=== PATIENT | male | born 1960 | race Caucasian/White ===

== ENCOUNTER → 2017-01-18 | Outpatient (CLI) | payer BC ==
[~2017-01-18] MED LIST: AMBIEN10 MG; NAPROXEN220 MG; NORCO 325 MG-7.1 TAB PO; PREDNISONE20 MG PO; SKELAXIN800 MG PO; SYNTHROID0.025 MG PO; TYLENOL 325MG325 MG
== END ==
LOC: LAB 07:53
DX: Z00.00 Encounter for general adult medical examination without abnormal findings (principal); Z12.5 Encounter for screening for malignant neoplasm of prostate; Z80.8 Family history of malignant neoplasm of other organs or systems; E04.2 Nontoxic multinodular goiter; R53.81 Other malaise; E55.9 Vitamin D deficiency, unspecified

== ENCOUNTER → 2017-01-25 | Outpatient (CLI) | payer BC ==
[2014-01-18 09:32] VITALS: BP 143/94
== END ==
LOC: RAD 12:56
DX: E04.2 Nontoxic multinodular goiter (principal)

== ENCOUNTER → 2017-02-16 | Outpatient (CLI) | payer BC ==
[2014-01-18 09:32] VITALS: BP 143/94
== END ==
LOC: LAB 10:00
DX: R10.813 Right lower quadrant abdominal tenderness (principal)

== ENCOUNTER → 2017-02-22 | Outpatient (CLI) | payer BC ==
[2014-01-18 09:32] VITALS: BP 143/94
== END ==
LOC: LAB 08:53
DX: K59.1 Functional diarrhea (principal)

== ENCOUNTER → 2017-02-23 | Outpatient (CLI) | payer BC ==
[2014-01-18 09:32] VITALS: BP 143/94
== END ==
LOC: LAB 09:54
DX: K59.1 Functional diarrhea (principal)

== ENCOUNTER → 2018-01-17 | Outpatient (CLI) | payer BC ==
[2014-01-18 09:32] VITALS: BP 143/94
[2018-01-17 15:58] LABS: HEMATOCRIT 44.8 % (42.0-52.0); HEMOGLOBIN 14.6 g/dL (13.5-18.0); MEAN PLATELET VOLUME 9.2 fl (7.4-10.4); RED BLOOD COUNT 4.94 M/mm3 (4.20-5.60); RED CELL DISTRIBUTION WIDTH 14.2 % (11.5-14.5); WHITE BLOOD COUNT 7.4 K/mm3 (4.8-10.8)
[2018-01-17 16:11] LABS: ALBUMIN 4.2 g/dL (3.5-5.0); BUN/CREATININE RATIO 16.9 (6.0-26.0); CALCIUM 9.8 mg/dL (8.4-10.2); POTASSIUM 4.4 mmol/L (3.6-5.0); TOTAL BILIRUBIN 0.5 mg/dL (0.2-1.3)
== END ==
LOC: LAB 15:23
PROVIDERS: Family Medicine
DX: E66.9 Obesity, unspecified (principal); E03.9 Hypothyroidism, unspecified; E55.9 Vitamin D deficiency, unspecified; Z88.1 Allergy status to other antibiotic agents; Z88.0 Allergy status to penicillin

== ENCOUNTER → 2018-02-13 | Outpatient (CLI) | payer BC ==
[2014-01-18 09:32] VITALS: BP 143/94
== END ==
LOC: LAB 14:05
DX: Z12.5 Encounter for screening for malignant neoplasm of prostate (principal); Z13.220 Encounter for screening for lipoid disorders; K21.9 Gastro-esophageal reflux disease without esophagitis; Z88.1 Allergy status to other antibiotic agents; Z88.0 Allergy status to penicillin

== ENCOUNTER → 2018-05-16 | Outpatient (CLI) | payer BC ==
[2014-01-18 09:32] VITALS: BP 143/94
== END ==
LOC: RAD 09:25
DX: M47.896 Other spondylosis, lumbar region (principal); M53.86 Other specified dorsopathies, lumbar region

== ENCOUNTER → 2018-05-26 | Outpatient (CLI) | payer BC ==
[2014-01-18 09:32] VITALS: BP 143/94
[2018-05-26 09:05] LABS: HEMATOCRIT 45.7 % (42.0-52.0); HEMOGLOBIN 14.9 g/dL (13.5-18.0); MEAN PLATELET VOLUME 8.8 fl (7.4-10.4); RED BLOOD COUNT 5.03 M/mm3 (4.20-5.60); RED CELL DISTRIBUTION WIDTH 14.3 % (11.5-14.5); WHITE BLOOD COUNT 6.8 K/mm3 (4.8-10.8)
[2018-05-26 09:32] LABS: ALBUMIN 4.3 g/dL (3.5-5.0); BUN/CREATININE RATIO 20.7 (6.0-26.0); CALCIUM 9.5 mg/dL (8.4-10.2); POTASSIUM 4.6 mmol/L (3.6-5.0); TOTAL BILIRUBIN 0.6 mg/dL (0.2-1.3); TOTAL PROTEIN 7.6 g/dL (6.3-8.2)
== END ==
LOC: LAB 08:51
PROVIDERS: Urology
DX: C61 Malignant neoplasm of prostate (principal)

== ENCOUNTER 2018-06-08 19:25 | Emergency (ER) | payer BC ==
[~2018-06-08] VITALS: Ht 180.3 cm; Wt 95.5 kg
[~2018-06-08 19:25] MED LIST changes: -SYNTHROID0.025 MG PO; +SYNTHROID25 MCG PO
[2018-06-08] MEDS ORDERED: CYCLOBENZAPRINE10 M1 PO (19:42)
[2018-06-08] MEDS ORDERED: NAPROSYN500 M1 PO (19:43)
[2018-06-08 21:02] LABS: HEMATOCRIT 43.2 % (42.0-52.0); HEMOGLOBIN 13.9 g/dL (13.5-18.0); MEAN CELL VOLUME 92 fl (78-100); MEAN CORPUSCULAR HEMOGLOBIN 29 pg (27-31); MEAN CORPUSCULAR HGB CONC 32 g/dL (33-37); PLATELET COUNT 239 K/mm3 (130-400); RED BLOOD COUNT 4.72 M/mm3 (4.20-5.60); RED CELL DISTRIBUTION WIDTH 14.5 % (11.5-14.5); WHITE BLOOD COUNT 7.3 K/mm3 (4.8-10.8)
[2018-06-08 21:09] LABS: CALCIUM 9.5 mg/dL (8.4-10.2); POTASSIUM 4.4 mmol/L (3.6-5.0); TOTAL BILIRUBIN 0.4 mg/dL (0.2-1.3); TOTAL PROTEIN 7.2 g/dL (6.3-8.2)
[2018-06-08 21:42] LABS: PH-URINE 6.5 (5.0 - 8.0); URINE APPEARANCE CLEAR; URINE BILIRUBIN NEGATIVE (NEGATIVE); URINE BLOOD NEGATIVE (NEGATIVE); URINE COLOR YELLOW; URINE GLUCOSE NEGATIVE (NEGATIVE); URINE KETONE NEGATIVE (NEGATIVE); URINE LEUKOCYTE ESTERASE NEGATIVE (NEGATIVE); URINE NITRATE NEGATIVE (NEGATIVE); URINE PROTEIN(semi-quant) NEGATIVE (NEGATIVE); URINE UROBILINOGEN NORMAL (NORMAL); URINE WBC 0-1 /hpf (0-3)
[2018-06-08 21:43] LABS: BAND 2 % (0-10); LYMPHOCYTE 40 % (20-51); MONOCYTE 8 % (3-10); NEUTROPHILS 46 % (42-75)
[2018-06-08 22:15] VITALS: BP 152/97
== END 2018-06-08 22:15 | disposition home or self-care (01) ==
LOC: ED 19:25
PROVIDERS: Nurse Practitioner Family
DX: K62.5 Hemorrhage of anus and rectum (principal); E86.0 Dehydration; Z87.19 Personal history of other diseases of the digestive system; Z79.899 Other long term (current) drug therapy; Z79.1 Long term (current) use of non-steroidal anti-inflammatories (NSAID); C61 Malignant neoplasm of prostate

== ENCOUNTER 2018-06-16 15:00 | Outpatient (RCR) | payer BC ==
[2014-01-18 09:32] VITALS: BP 143/94
[~2018-06-16 15:00] MED LIST changes: +CYCLOBENZAPRINE10 M1 PO; +NAPROSYN500 M1 PO
== END 2018-06-16 15:30 | disposition home or self-care (01) ==
LOC: PT 15:00
DX: M54.42 Lumbago with sciatica, left side (principal); M53.3 Sacrococcygeal disorders, not elsewhere classified

== ENCOUNTER → 2018-08-15 | Outpatient (CLI) | payer BC | LOC: RAD 08:58 | DX: E04.1 Nontoxic single thyroid nodule (principal); R59.9 Enlarged lymph nodes, unspecified ==

== ENCOUNTER → 2018-08-21 | Outpatient (CLI) | payer BC | LOC: LAB 09:29 | DX: C61 Malignant neoplasm of prostate (principal) ==

== ENCOUNTER 2018-09-10 09:05 | Emergency (ER) | payer BC ==
[2018-09-10] MEDS ORDERED: LEVOTHYROXIN0.025 MG PO (09:21)
[2018-09-10] MEDS ORDERED: MUCINEX 60600 MG/TA1 PO (09:21)
[2018-09-10] MEDS ORDERED: ZYRTEC10 M3 PO (09:22)
[2018-09-10 10:08] LABS: EOS # 0.5 (0.04-0.40); HEMATOCRIT 44.5 % (42.0-52.0); HEMOGLOBIN 14.6 g/dL (13.5-18.0); LYMPH# 2.5 (1.50-4.00); MEAN CELL VOLUME 92 fl (78-100); MEAN CORPUSCULAR HEMOGLOBIN 30 pg (27-31); MEAN CORPUSCULAR HGB CONC 33 g/dL (33-37); MEAN PLATELET VOLUME 9.2 fl (7.4-10.4); MONO # 0.9 (0.20-0.80); NEU # 4.3 (1.40-6.50); PLATELET COUNT 264 K/mm3 (130-400); RED BLOOD COUNT 4.84 M/mm3 (4.20-5.60); WHITE BLOOD COUNT 8.3 K/mm3 (4.8-10.8)
[2018-09-10 10:21] LABS: ALBUMIN 4.3 g/dL (3.5-5.0); CALCIUM 9.7 mg/dL (8.4-10.2); POTASSIUM 4.7 mmol/L (3.6-5.0); TOTAL BILIRUBIN 0.6 mg/dL (0.2-1.3); TOTAL PROTEIN 7.5 g/dL (6.3-8.2)
[2018-09-10 10:24] LABS: EOS % 6.2 % (0.0-4.0)
[2018-09-10 10:35] LABS: PROTHROMBIN TIME 9.1 SECONDS (9.0-12.0)
[2018-09-10 11:32] VITALS: BP 148/97
== END 2018-09-10 11:36 | disposition home or self-care (01) ==
LOC: ED 09:05
PROVIDERS: Family Medicine
DX: G45.9 Transient cerebral ischemic attack, unspecified (principal); E03.9 Hypothyroidism, unspecified; Z79.899 Other long term (current) drug therapy

== ENCOUNTER → 2018-09-11 | Outpatient (CLI) | payer BC ==
[2018-09-10 11:32] VITALS: BP 148/97
[~2018-09-11] MED LIST changes: +LEVOTHYROXIN0.025 MG PO; +MUCINEX 60600 MG/TA1 PO; +ZYRTEC10 M3 PO
== END ==
LOC: VAS 16:42
DX: G45.9 Transient cerebral ischemic attack, unspecified (principal)

== ENCOUNTER → 2018-09-12 | Outpatient (CLI) | payer BC ==
[2018-09-10 11:32] VITALS: BP 148/97
== END ==
LOC: RAD 10:56
DX: G45.9 Transient cerebral ischemic attack, unspecified (principal)

== ENCOUNTER → 2018-09-13 | Outpatient (CLI) | payer BC ==
[2018-09-10 11:32] VITALS: BP 148/97
== END ==
LOC: CARDREHAB 11:46 → CARDIO 16:30
DX: R07.9 Chest pain, unspecified (principal)

== ENCOUNTER → 2018-11-20 | Outpatient (CLI) | payer BC | LOC: LAB 11:18 | DX: C61 Malignant neoplasm of prostate (principal) ==

== ENCOUNTER → 2019-02-06 | Outpatient (CLI) | payer BC ==
[2019-02-06 10:22] LABS: EOS # 0.4 (0.04-0.40); HEMATOCRIT 45.6 % (42.0-52.0); HEMOGLOBIN 14.6 g/dL (13.5-18.0); LYMPH# 1.8 (1.50-4.00); MEAN CELL VOLUME 90 fl (78-100); MEAN CORPUSCULAR HEMOGLOBIN 29 pg (27-31); MEAN CORPUSCULAR HGB CONC 32 g/dL (33-37); MEAN PLATELET VOLUME 9.4 fl (7.4-10.4); MONO # 0.4 (0.20-0.80); NEU # 2.1 (1.40-6.50); PLATELET COUNT 107 K/mm3 (130-400); RED BLOOD COUNT 5.08 M/mm3 (4.20-5.60); RED CELL DISTRIBUTION WIDTH 14.9 % (11.5-14.5); WHITE BLOOD COUNT 4.7 K/mm3 (4.8-10.8)
[2019-02-06 10:42] LABS: ALBUMIN 4.4 g/dL (3.5-5.0); CALCIUM 9.6 mg/dL (8.4-10.2); POTASSIUM 4.2 mmol/L (3.6-5.0); TOTAL BILIRUBIN 0.6 mg/dL (0.2-1.3); TOTAL PROTEIN 7.7 g/dL (6.3-8.2)
[2019-02-06 10:43] LABS: EOS % 7.4 % (0.0-4.0)
== END ==
LOC: LAB 09:48
PROVIDERS: Family Medicine
DX: Z00.00 Encounter for general adult medical examination without abnormal findings (principal); C61 Malignant neoplasm of prostate; E66.9 Obesity, unspecified; E55.9 Vitamin D deficiency, unspecified; E03.9 Hypothyroidism, unspecified

== ENCOUNTER → 2019-06-20 | Outpatient (CLI) | payer BC | LOC: LAB 12:56 | DX: Z85.46 Personal history of malignant neoplasm of prostate (principal) ==

== ENCOUNTER → 2019-08-30 | Outpatient (CLI) | payer BC | LOC: RAD 09:19 | DX: R05 Cough (principal); R50.9 Fever, unspecified ==

== ENCOUNTER → 2020-02-12 | Outpatient (CLI) | payer BC | LOC: LAB 07:22 | DX: Z85.46 Personal history of malignant neoplasm of prostate (principal) ==

== ENCOUNTER 2020-03-26 08:00 | Outpatient (RCR) | payer BC | END 2020-03-26 08:30 | disposition still patient (30) | LOC: PT 08:00 | DX: M54.17 Radiculopathy, lumbosacral region (principal) ==

== ENCOUNTER → 2020-05-05 | Day surgery (SDC) | payer BC | LOC: MSO 07:34 | DX: Z12.11 Encounter for screening for malignant neoplasm of colon (principal); I10 Essential (primary) hypertension; G47.33 Obstructive sleep apnea (adult) (pediatric); K21.9 Gastro-esophageal reflux disease without esophagitis; Z86.73 Personal history of transient ischemic attack (TIA), and cerebral infarction without residual deficits; Z20.828 Contact with and (suspected) exposure to other viral communicable diseases; Z96.659 Presence of unspecified artificial knee joint; Z79.82 Long term (current) use of aspirin; Z85.46 Personal history of malignant neoplasm of prostate | CPT/HCPCS: 00812; J2704; J7120 ==

== ENCOUNTER → 2020-10-01 | Outpatient (CLI) | payer BC | LOC: LAB 06:58 | DX: Z12.5 Encounter for screening for malignant neoplasm of prostate (principal); Z85.46 Personal history of malignant neoplasm of prostate ==

== ENCOUNTER → 2020-10-03 | Outpatient (CLI) | payer BC | LOC: LAB 07:34 | DX: U07.1 COVID-19 (principal) ==

== ENCOUNTER 2020-10-11 12:24 | Emergency (ER) | payer BC ==
[2020-10-11] MEDS ORDERED: VIAGRA50 M1 PO (12:55)
[2020-10-11] MEDS ORDERED: LISINOPRIL10 MG PO (12:55)
[2020-10-11] MEDS ORDERED: ZYRTEC ALLERGY10 MG PO (12:56)
[2020-10-11] MEDS ORDERED: LEVO-T50 MCG PO (12:56)
[2020-10-11] MEDS ORDERED: NAPROXEN500 MG PO (12:57)
[2020-10-11] MEDS ORDERED: ASPIRIN E.C. 8181 MG (12:57)
[2020-10-11] MEDS ORDERED: AMBIEN10 MG PO (12:58)
[2020-10-11 13:28] LABS: HEMATOCRIT 42.9 % (42.0-52.0); MEAN CELL VOLUME 89 fl (78-100); MEAN CORPUSCULAR HEMOGLOBIN 29 pg (27-31); MEAN CORPUSCULAR HGB CONC 33 g/dL (33-37); MEAN PLATELET VOLUME 9.3 fl (7.4-10.4); PLATELET COUNT 194 K/mm3 (130-400); RED CELL DISTRIBUTION WIDTH 13.8 % (11.5-14.5); WHITE BLOOD COUNT 4.5 K/mm3 (4.8-10.8)
[2020-10-11 13:37] LABS: BAND 1 % (0-10); LYMPHOCYTE 40 % (20-51); MONOCYTE 14 % (3-10); NEUTROPHILS 42 % (42-75)
[2020-10-11 13:38] LABS: POTASSIUM 3.7 mmol/L (3.5-5.1); SODIUM 140 mmol/L (136-145)
[2020-10-11 13:39] LABS: CALCIUM 9.1 mg/dL (8.3-10.5)
[2020-10-11 13:40] LABS: GLUCOSE 93 mg/dL (75-110)
[2020-10-11 13:41] LABS: CARBON DIOXIDE 22 mmol/L (23-31)
[2020-10-11 13:56] LABS: TROPONIN-I < 0.03 ng/mL (<0.030)
[2020-10-11 14:59] VITALS: BP 134/76
== END 2020-10-11 15:05 | disposition home or self-care (01) ==
LOC: ED 12:24
PROVIDERS: Family Medicine
DX: U07.1 COVID-19 (principal); E03.9 Hypothyroidism, unspecified; Z85.46 Personal history of malignant neoplasm of prostate; Z88.0 Allergy status to penicillin; Z88.2 Allergy status to sulfonamides; Z79.890 Hormone replacement therapy; Z79.82 Long term (current) use of aspirin

== ENCOUNTER → 2021-01-26 | Outpatient (CLI) | payer BC ==
[~2021-01-26] MED LIST changes: +AMBIEN10 MG PO; +ASPIRIN E.C. 8181 MG; +LEVO-T50 MCG PO; +LISINOPRIL10 MG PO; +NAPROXEN500 MG PO; +VIAGRA50 M1 PO; +ZYRTEC ALLERGY10 MG PO
[2021-01-26 08:45] LABS: ALBUMIN 4.2 g/dL (3.4-4.8); POTASSIUM 4.6 mmol/L (3.5-5.1)
[2021-01-26 08:46] LABS: CALCIUM 9.4 mg/dL (8.3-10.5)
[2021-01-26 08:47] LABS: TOTAL PROTEIN 7.3 g/dL (6.2-8.1)
[2021-01-26 08:48] LABS: EOS # 0.5 (0.04-0.40); HEMATOCRIT 45.4 % (42.0-52.0); HEMOGLOBIN 14.2 g/dL (13.5-18.0); LYMPH# 2.3 (1.50-4.00); MEAN CELL VOLUME 92 fl (78-100); MEAN CORPUSCULAR HEMOGLOBIN 29 pg (27-31); MEAN CORPUSCULAR HGB CONC 31 g/dL (33-37); MEAN PLATELET VOLUME 9.3 fl (7.4-10.4); MONO # 0.6 (0.20-0.80); NEU # 2.9 (1.40-6.50); PLATELET COUNT 272 K/mm3 (130-400); RED BLOOD COUNT 4.92 M/mm3 (4.20-5.60); RED CELL DISTRIBUTION WIDTH 14.8 % (11.5-14.5); WHITE BLOOD COUNT 6.4 K/mm3 (4.8-10.8)
[2021-01-26 08:49] LABS: TOTAL BILIRUBIN 0.7 mg/dL (0.2-1.2)
[2021-01-26 08:50] LABS: EOS % 7.9 % (0.0-4.0)
== END ==
LOC: LAB 08:06
PROVIDERS: Family Medicine
DX: Z00.00 Encounter for general adult medical examination without abnormal findings (principal); C61 Malignant neoplasm of prostate; E78.5 Hyperlipidemia, unspecified; E03.4 Atrophy of thyroid (acquired)

== ENCOUNTER → 2021-02-09 | Outpatient (CLI) | payer BC | LOC: CARDREHAB 13:00 → CARDLAB 15:45 | DX: I10 Essential (primary) hypertension (principal); R06.00 Dyspnea, unspecified ==

== ENCOUNTER → 2021-10-20 | Outpatient (CLI) | payer BC | LOC: LAB 09:08 | DX: Z20.822 Contact with and (suspected) exposure to COVID-19 (principal) ==

== ENCOUNTER 2022-01-09 11:37 | Emergency (ER) | payer BC ==
[~2022-01-09] VITALS: Ht 180.3 cm; Wt 99.1 kg
[2022-01-09 12:35] VITALS: BP 109/72
== END 2022-01-09 12:38 | disposition home or self-care (01) ==
LOC: ED 11:37
DX: S06.0X0A Concussion without loss of consciousness, initial encounter (principal); S00.03XA Contusion of scalp, initial encounter; W01.198A Fall on same level from slipping, tripping and stumbling with subsequent striking against other object, initial encounter; Y93.H2 Activity, gardening and landscaping; Y92.096 Garden or yard of other non-institutional residence as the place of occurrence of the external cause

== ENCOUNTER → 2022-01-27 | Outpatient (CLI) | payer BC ==
[2022-01-27 08:13] LABS: BASO # 0.05 K/mm3 (0.02-0.10); EOS # 0.54 K/mm3 (0.04-0.40); EOS % 7.6 % (0.0-4.0); HEMATOCRIT 44.2 % (42.0-52.0); HEMOGLOBIN 14.1 g/dL (13.5-18.0); LYMPH# 2.55 K/mm3 (1.50-4.00); MEAN CELL VOLUME 93 fl (78-100); MEAN CORPUSCULAR HEMOGLOBIN 30 pg (27-31); MEAN CORPUSCULAR HGB CONC 32 g/dL (33-37); MEAN PLATELET VOLUME 8.8 fl (7.4-10.4); MONO # 0.67 K/mm3 (0.20-0.80); NEU # 3.32 K/mm3 (1.40-6.50); PLATELET COUNT 270 K/mm3 (130-400); RED BLOOD COUNT 4.77 M/mm3 (4.20-5.60); RED CELL DISTRIBUTION WIDTH 13.7 % (11.5-14.5); WHITE BLOOD COUNT 7.1 K/mm3 (4.8-10.8)
[2022-01-27 08:21] LABS: POTASSIUM 4.3 mmol/L (3.5-5.1)
[2022-01-27 08:22] LABS: CALCIUM 9.7 mg/dL (8.3-10.5)
[2022-01-27 08:24] LABS: TOTAL PROTEIN 6.9 g/dL (6.2-8.1)
[2022-01-27 08:26] LABS: TOTAL BILIRUBIN 0.4 mg/dL (0.2-1.2)
== END ==
LOC: LAB 07:19
PROVIDERS: Family Medicine
DX: Z00.00 Encounter for general adult medical examination without abnormal findings (principal); E78.5 Hyperlipidemia, unspecified; E03.4 Atrophy of thyroid (acquired)

== ENCOUNTER → 2022-04-20 | Outpatient (CLI) | payer BC | LOC: RAD 08:44 | DX: E04.1 Nontoxic single thyroid nodule (principal); R06.00 Dyspnea, unspecified | CPT/HCPCS: Q9967 ==

== ENCOUNTER 2022-07-09 11:07 | Emergency (ER) | payer BC ==
[~2022-07-09] VITALS: Ht 177.8 cm; Wt 98.2 kg
[2022-07-09] MEDS ORDERED: DAILY VALUE1 EACH PO (11:20)
[2022-07-09 12:25] VITALS: BP 120/80
== END 2022-07-09 12:30 | disposition home or self-care (01) ==
LOC: ED 11:07
DX: S61.213A Laceration without foreign body of left middle finger without damage to nail, initial encounter (principal); W26.8XXA Contact with other sharp object(s), not elsewhere classified, initial encounter; Y92.59 Other trade areas as the place of occurrence of the external cause; Y99.0 Civilian activity done for income or pay

== ENCOUNTER → 2022-11-12 | Outpatient (CLI) | payer BC ==
[~2022-11-12] MED LIST changes: +DAILY VALUE1 EACH PO
== END ==
LOC: LAB 08:21
DX: Z20.822 Contact with and (suspected) exposure to COVID-19 (principal)

== ENCOUNTER → 2024-02-15 | Outpatient (CLI) | payer MEDICARE, BC ==
[2024-02-15 11:05] LABS: BASO # 0.01 K/mm3 (0.02-0.10); EOS # 0.33 K/mm3 (0.04-0.40); EOS % 4.2 % (0.0-4.0); HEMATOCRIT 40.6 % (42.0-52.0); HEMOGLOBIN 12.6 g/dL (13.5-18.0); LYMPH# 1.74 K/mm3 (1.50-4.00); MEAN CELL VOLUME 89 fl (78-100); MEAN CORPUSCULAR HEMOGLOBIN 28 pg (27-31); MEAN CORPUSCULAR HGB CONC 31 g/dL (33-37); MEAN PLATELET VOLUME 8.1 fl (7.4-10.4); MONO # 0.74 K/mm3 (0.20-0.80); NEU # 5.11 K/mm3 (1.40-6.50); PLATELET COUNT 314 K/mm3 (130-400); RED BLOOD COUNT 4.54 M/mm3 (4.20-5.60); RED CELL DISTRIBUTION WIDTH 14.8 % (11.5-14.5); WHITE BLOOD COUNT 7.9 K/mm3 (4.8-10.8)
[2024-02-15 11:11] LABS: CALCIUM 10.3 mg/dL (8.3-10.5)
[2024-02-15 11:12] LABS: TOTAL PROTEIN 7.6 g/dL (6.2-8.1)
[2024-02-15 11:14] LABS: TOTAL BILIRUBIN 0.5 mg/dL (0.2-1.2)
== END ==
LOC: LAB 10:43
PROVIDERS: Nurse Practitioner
DX: Z00.00 Encounter for general adult medical examination without abnormal findings (principal); E04.1 Nontoxic single thyroid nodule; Z85.46 Personal history of malignant neoplasm of prostate

== ENCOUNTER → 2024-02-21 | Outpatient (CLI) | payer MEDICARE, BC | LOC: RAD 08:44 | DX: E04.1 Nontoxic single thyroid nodule (principal); K11.8 Other diseases of salivary glands ==

== ENCOUNTER → 2024-02-23 | Outpatient (CLI) | payer MEDICARE, BC ==
[2024-04-03 19:31] LABS: ANA SCREEN with REFLEX NEG
[2024-04-03 19:32] LABS: FOLATE (FOLIC ACID) 18.7
== END ==
LOC: LAB 15:13
PROVIDERS: Nurse Practitioner
DX: D64.9 Anemia, unspecified (principal)

== ENCOUNTER 2024-10-26 16:06 | Emergency (ER) | payer MEDICARE, BC ==
[~2024-10-26] VITALS: Ht 177.8 cm; Wt 104.5 kg
[2024-10-26] MEDS ORDERED: ALBUTEROL2.5 MG/3 M IH (16:14)
[2024-10-26] MEDS ORDERED: AZITHROMYCIN 250MGPK PO (16:14)
[2024-10-26 16:49] LABS: BASO # 0.04 K/mm3 (0.02-0.10); EOS # 0.43 K/mm3 (0.04-0.40); EOS % 5.7 % (0.0-4.0); HEMATOCRIT 41.4 % (42.0-52.0); HEMOGLOBIN 13.5 g/dL (13.5-18.0); LYMPH# 2.09 K/mm3 (1.50-4.00); MEAN CELL VOLUME 92 fl (78-100); MEAN CORPUSCULAR HEMOGLOBIN 30 pg (27-31); MEAN CORPUSCULAR HGB CONC 33 g/dL (33-37); MEAN PLATELET VOLUME 9.6 fl (7.4-10.4); MONO # 0.74 K/mm3 (0.20-0.80); NEU # 4.22 K/mm3 (1.40-6.50); RED BLOOD COUNT 4.49 M/mm3 (4.20-5.60); RED CELL DISTRIBUTION WIDTH 14.3 % (11.5-14.5); WHITE BLOOD COUNT 7.5 K/mm3 (4.8-10.8)
[2024-10-26 16:56] LABS: ALBUMIN 4.3 g/dL (3.4-4.8)
[2024-10-26 16:58] LABS: CALCIUM 10.1 mg/dL (8.3-10.5)
[2024-10-26 16:59] LABS: TOTAL PROTEIN 7.5 g/dL (6.2-8.1)
[2024-10-26 17:01] LABS: TOTAL BILIRUBIN 0.5 mg/dL (0.2-1.2)
[2024-10-26] MEDS ORDERED: Cefdinir 300 MG CAP PO ONE (17:30)
[2024-10-26 17:51] LABS: D-DIMER 0.43 mg/L FEU (0.15-0.50)
[2024-10-26] MEDS ORDERED: CEFDINIR300 MG PO (17:58)
[2024-10-26] MEDS ORDERED: Albuterol/Ipratropium 3 MG-0.5 MG/3 ML Neb Soln IH ONE ×2 (18:00→20:00)
[2024-10-26] MEDS ORDERED: PROAIR HFA0.09 MG/AC IH (18:19)
[2024-10-26] MEDS ORDERED: ATROVENT HFA IH (18:20)
[2024-10-26] MEDS ORDERED: FLUTICASONE P15.8 ML NS (18:21)
[2024-10-26] MEDS ORDERED: ALLER-TEC10 MG PO (18:21)
[2024-10-26 18:24] LABS: PLATELET COUNT 210 K/mm3 (130-400)
[2024-10-26 18:50] VITALS: BP 177/94
[2024-10-26] MEDS ORDERED: PREDNISONE20 M1 PO (19:59)
[2024-10-26] MEDS ORDERED: predniSONE 20 MG TAB PO ONE (20:00)
== END 2024-10-26 20:43 | disposition home or self-care (01) ==
LOC: ED 16:06
PROVIDERS: Family Medicine
DX: R06.02 Shortness of breath (principal); R79.89 Other specified abnormal findings of blood chemistry; E66.9 Obesity, unspecified; Z85.46 Personal history of malignant neoplasm of prostate; Z68.33 Body mass index [BMI] 33.0-33.9, adult; Z79.82 Long term (current) use of aspirin
CPT/HCPCS: J7512

== ENCOUNTER → 2024-11-01 | Outpatient (CLI) | payer MEDICARE, BC ==
[~2024-11-01] MED LIST changes: +ALBUTEROL2.5 MG/3 M IH; +ALLER-TEC10 MG PO; +ATROVENT HFA IH; +AZITHROMYCIN 250MGPK PO; +CEFDINIR300 MG PO; +FLUTICASONE P15.8 ML NS; +Iohexol 300 - 100 ML VIAL IV ONE; +NS 100 ML IV ONE; +PREDNISONE20 M1 PO; +PROAIR HFA0.09 MG/AC IH
== END ==
LOC: RAD 14:32
DX: R05.9 Cough, unspecified (principal)
CPT/HCPCS: Q9967